=== PATIENT | female | born 1940 | race Caucasian/White ===

== ENCOUNTER 2018-11-04 12:45 | Emergency (ER) | payer OTHER ==
[~2018-11-04] VITALS: Ht 157.5 cm; Wt 81.6 kg
[2018-11-04] MEDS ORDERED: PRADAXA150 MG (13:01)
[2018-11-04] MEDS ORDERED: SYNTHROID125 MCG (13:02)
[2018-11-04] MEDS ORDERED: LISINOPRIL20 MG (13:02)
[2018-11-04] MEDS ORDERED: [UNRECOGNIZED DRUG - OTHER] (13:15)
== END 2018-11-04 18:44 | disposition home or self-care (01) ==
LOC: ER 12:45
DX: R53.1 Weakness (principal); R78.81 Bacteremia